=== PATIENT | female | born 1960 | race Caucasian/White ===

== ENCOUNTER 2020-01-31 11:54 | Outpatient (NON) | payer OTHER, SELFPAY ==
[2020-02-02 13:06] LABS: SARS-CoV-2 RNA PCR Negative
== END 2020-01-31 11:55 ==
LOC: ANHCOVIDDT 11:55
PROVIDERS: PCP Family Medicine; Visit Provider Physician Assistant
DX: Z20.828 Contact with and (suspected) exposure to other viral communicable diseases (principal); J02.9 Acute pharyngitis, unspecified; R52 Pain, unspecified
CPT/HCPCS: 87635; C9803; U0003

== ENCOUNTER 2020-04-28 08:40 | Outpatient (CLI) | payer OTHER, SELFPAY ==
--- NOTE | ~2020-04-28 | MM_ITS ---
EXAMINATION: MM screening [facility] w betsy HISTORY: Screening mammogram TECHNIQUE: Craniocaudal and mediolateral oblique 3-D tomosynthesis images were obtained and synthetic 2-D images were generated. CAD analysis was submitted and interpreted. COMPARISON: 04/07/2019, 03/30/2018, 02/11/2017 bilateral digital screening mammogram examinations BREAST PARENCHYMAL COMPOSITION: There are scattered areas of fibroglandular density. FINDINGS: There is no evidence of suspicious mass, calcification, or architectural distortion to sugg est malignancy in either breast. There has been no suspicious interval change. IMPRESSION: 1. No mammographic evidence of malignancy. 2. Recommend routine screening mammography in one year. BI-RADS Category 1: Negative Reviewed, dictated and finalized at location A. T RUNNER
== END 2020-04-28 08:41 | disposition home or self-care (01) ==
LOC: ANHIMG 08:42
PROVIDERS: PCP Family Medicine; Visit Provider Family Medicine
DX: Z12.31 Encounter for screening mammogram for malignant neoplasm of breast (principal)
CPT/HCPCS: 77063; 77067

== ENCOUNTER 2021-05-31 07:41 | Outpatient (CLI) | payer OTHER, SELFPAY ==
--- NOTE | ~2021-05-31 | MM_ITS ---
EXAMINATION: MM screening [facility] BI w betsy HISTORY: Screening mammogram TECHNIQUE: Craniocaudal and mediolateral oblique 3-D tomosynthesis images were obtained and synthetic 2-D images were generated. CAD analysis was submitted and interpreted. COMPARISON: 04/28/2020, 04/07/2019, 03/30/2018 BREAST PARENCHYMAL COMPOSITION: There are scattered areas of fibroglandular density. FINDINGS: There is no suspicious mass, calcification, or architectural distortion to suggest malignan cy in either breast. There has been no suspicious interval change. IMPRESSION: 1. No mammographic evidence of malignancy. 2. Recommend routine screening mammography in one year. BI-RADS Category 1: Negative Reviewed, dictated and finalized at location A.
== END 2021-05-31 07:42 | disposition home or self-care (01) ==
PROVIDERS: PCP Family Medicine; Visit Provider Family Medicine
DX: Z12.31 Encounter for screening mammogram for malignant neoplasm of breast (principal)
CPT/HCPCS: 77063; 77067

== ENCOUNTER → 2021-12-11 13:37 | Outpatient (CLI) | payer OTHER, SELFPAY ==
--- NOTE | ~2021-12-11 | DEXA_ITS ---
Bone Density Report Name: JAYMIE SPENCE Age: 61 Sex: Female Ethnicity: White Date of : 1960 Indication: postmenopausal; screening for osteoporosis; Referring Provider: Lisa Hull Study: Bone densitometry was performed. Exam Date: December 11, 2021 Accession number: [id number] Bone Density: Region BMD T-score Z-score Classification AP Spine (L1-L4) 0.931 -1.1 0.4 Osteopenia Femoral Neck (Left) 0.711 -1.2 0.1 Osteopenia Total Hip (Left) 0.939 0.0 0.9 Normal Femoral Neck (Right) 0.715 -1.2 0.1 Osteopenia Total Hip (Right) 0.945 0.0 1.0 Normal Total Hip Mean 0.942 0.0 1.0 Normal World Health Organization criteria for BMD impression classify patients as: Normal (T-score at or above -1.0), Osteopenia (T-score between -1.0 and -2.5), or Osteoporosis (T-score at or below -2.5). 10-year Fracture Risk(1): Major Osteoporotic Fracture 6.8% Hip Fracture 0.4% Reported Risk Factors: [place] (), Neck BMD=0.715, BMI=36.9 (1) FRAX(R) Version 3.08. Fracture probability calculated for an untreated patient. Fracture probability may be lower if the patient has received treatment. Clinical Information Provided by Patient: Has used the following medications: Vitamin D, Calcium Patient maximum height was 61 Menopause Age: 51 Drinks caffeinated beverages Onset of menses at age 14 Number of children 2 Impression: The patient has low bone mass, based on the Left Femoral Neck T-score. The patient has an estimated ten-year risk of hip fracture of 0.4% and an estimated ten-year risk of major fracture of 6.8%, based on the WHO FRAX algorithm. Discussion: BONE DENSITY IS LOW AT ONE OR MORE SKELETAL SITES. This patient's lowest T-score is low at one or more skeletal sites. It meets the World Health Organization's (WHO) criteria for ?low bone mass? (T-score between -1.0 and -2.5). The patient's 10-year risk of fracture as calculated by FRAX is less than the threshold where pharmacological therapy is recommended by the National Osteoporosis Foundation (NOF). However, all treatment decisions require clinical judgment and consideration of individual patient factors, including patient preferences, comorbidities, previous drug use, risk factors not captured in the FRAX model (e.g., frailty, falls, vitamin D deficiency, increased bone turnover, interval significant decline in bone density) and possible under or overestimation of fracture risk by FRAX. The patient should follow a healthful lifestyle (good nutrition with adequate calcium and vitamin D, and appropriate weight-bearing exercise). Follow-Up: Consider repeating this study in 2 to 3 years to reassess this patient's status, or sooner if there is some new clinical indication. Reported by: JAZMÍN on 12/11/2021 2:08:00 PM.
== END ==
PROVIDERS: PCP Family Medicine; Visit Provider Family Medicine
DX: Z78.0 Asymptomatic menopausal state (principal); M85.88 Other specified disorders of bone density and structure, other site; M85.852 Other specified disorders of bone density and structure, left thigh; M85.851 Other specified disorders of bone density and structure, right thigh
CPT/HCPCS: 77080

== ENCOUNTER → 2022-03-21 10:50 | Outpatient (CLI) | payer OTHER, SELFPAY ==
--- NOTE | ~2022-03-21 | US_ITS ---
Thyroid ultrasound. Clinical History: Hypothyroidism Findings: Real-time sonography of the thyroid gland was performed. The right lobe measures 4.8 x 1.2 x 1.5 cm. The left lobe measures 4.6 x 1.2 x 1.2 cm. The isthmus is 3 mm in AP diameter. 4 mm cystic nodule noted in the right thyroid lobe. 3 mm hypoechoic nodule noted the left midpole. Impression: Tiny thyroid nodules. No further follow-up required for these findings.. Reviewed, dictated and finalized at location M. 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 No further follow-up required for these findings..
== END ==
PROVIDERS: PCP Family Medicine; Visit Provider Nurse Practitioner
DX: E03.9 Hypothyroidism, unspecified (principal)
CPT/HCPCS: 76536

== ENCOUNTER 2022-12-23 13:46 | Outpatient (CLI) | payer OTHER, SELFPAY ==
--- NOTE | ~2022-12-23 | MM_ITS ---
EXAMINATION: MM screening [facility] BI w betsy HISTORY: Screening mammogram TECHNIQUE: Craniocaudal and mediolateral oblique 3-D tomosynthesis images were obtained and synthetic 2-D images were generated. CAD analysis was submitted and interpreted. COMPARISON: 05/31/2021, 04/28/2020, 04/07/2019 bilateral screening mammogram examinations BREAST PARENCHYMAL COMPOSITION: There are scattered areas of fibroglandular density. FINDINGS: There is no evidence of suspicious mass, calcification, or architectural distortion to sugg est malignancy in either breast. There has been no suspicious interval change. IMPRESSION: 1. No mammographic evidence of malignancy. 2. Recommend routine screening mammography in one year. BI-RADS Category 1: Negative Reviewed, dictated and finalized at location A.
== END 2022-12-23 13:47 | disposition home or self-care (01) ==
LOC: ANHIMG 13:48
PROVIDERS: PCP Family Medicine; Visit Provider Family Medicine
DX: Z12.31 Encounter for screening mammogram for malignant neoplasm of breast (principal)
CPT/HCPCS: 77063; 77067

== ENCOUNTER → 2023-03-25 10:49 | Outpatient (CLI) | payer OTHER, SELFPAY ==
--- NOTE | ~2023-03-25 | XR_ITS ---
XR sacrum coccyx min 2V DATE: 03/25/2023 11:01 INDICATION: Fall in December,. Sacrococcygeal disorder. TECHNIQUE: AP, angled AP and lateral views of sacrum and coccyx COMPARISON: None FINDINGS: There is borderline grade 1/grade 2 anterolisthesis and severe degenerative disc disease at L5-S1. No sacral or coccygeal fracture or bone destruction is detected. Normal alignment at the sacroiliac j oints and pubic symphysis. IMPRESSION: Severe degenerative disc disease and borderline grade 1/grade 2 anterolisthesis at L5-S1 Normal sacrum and coccyx Reviewed, dictated and finalized at location L. 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
== END ==
PROVIDERS: PCP Family Medicine; Visit Provider Family Medicine
DX: M47.817 Spondylosis without myelopathy or radiculopathy, lumbosacral region (principal); M51.37 Other intervertebral disc degeneration, lumbosacral region; M53.3 Sacrococcygeal disorders, not elsewhere classified
CPT/HCPCS: 72220

== ENCOUNTER 2024-01-06 08:02 | Outpatient (CLI) | payer OTHER, SELFPAY ==
--- NOTE | ~2024-01-06 | DEXA_ITS ---
Bone Density Report Name: JAYMIE SPENCE Age: 63 Sex: Female Ethnicity: White Date of : 1960 Indication: postmenopausal; screening for osteoporosis; Referring Provider: MOOK GASPAR Study: Bone densitometry was performed. Exam Date: January 06, 2024 Accession number: [id number] Bone Density: Region BMD T-score Z-score Classification AP Spine(L1-L4) 0.866 -1.6 -0.1 Osteopenia Femoral Neck (Left) 0.709 -1.3 0.1 Osteopenia Total Hip (Left) 0.893 -0.4 0.7 Normal Femoral Neck (Right) 0.718 -1.2 0.2 Osteopenia Total Hip (Right) 0.908 -0.3 0.8 Normal Femoral Neck Mean 0.714 -1.2 0.2 Osteopenia Total Hip Mean 0.901 -0.3 0.7 Normal World Health Organization criteria for BMD impression classify patients as: Normal (T-score at or above -1.0), Osteopenia (T-score between -1.0 and -2.5), or Osteoporosis (T-score at or below -2.5). 10-year Fracture Risk(1): Major Osteoporotic Fracture 7.3% Hip Fracture 0.5% Reported Risk Factors: [place] (), Neck BMD=0.709, BMI=36.1 (1) FRAX(R) Version 3.08. Fracture probability calculated for an untreated patient. Fracture probability may be lower if the patient has received treatment. Clinical Information Provided by Patient: Has used the following medications: HRT (i.e. estrogen/hormone therapy), Vitamin D, Calcium Patient maximum height was 61.0 Menopause Age: 51 No regular weight bearing exercise Drinks caffeinated beverages Onset of menses at age 14 Number of children 2 Impression: The patient has low bone mass, based on the Total Spine T-score. Discussion: BONE DENSITY IS LOW AT ONE OR MORE SKELETAL SITES. This patient's lowest T-score is low at one or more skeletal sites. It meets the World Health Organization's (WHO) criteria for ?low bone mass? (T-score between -1.0 and -2.5). The patient's 10-year risk of fracture as calculated by FRAX is less than the threshold where pharmacological therapy is recommended by the National Osteoporosis Foundation (NOF). However, all treatment decisions require clinical judgment and consideration of individual patient factors, including patient preferences, comorbidities, previous drug use, risk factors not captured in the FRAX model (e.g., frailty, falls, vitamin D deficiency, increased bone turnover, interval significant decline in bone density) and possible under or overestimation of fracture risk by FRAX. The patient should follow a healthful lifestyle (good nutrition with adequate calcium and vitamin D, and appropriate weight-bearing exercise). Follow-Up: Consider repeating this study in 2 to 3 years to reassess this patient's status, or sooner if there is some new clinical indication. Reported by: BAHMAN on 01/06/2024 2:42:00 PM.
== END 2024-01-06 08:03 | disposition home or self-care (01) ==
LOC: CHSIMG 08:05
PROVIDERS: PCP Family Medicine; Visit Provider Nurse Practitioner
DX: Z78.0 Asymptomatic menopausal state (principal); M85.88 Other specified disorders of bone density and structure, other site
CPT/HCPCS: 77080

== ENCOUNTER 2024-01-12 03:17 | Day surgery (SDC) | payer OTHER, SELFPAY ==
[2024-01-01 10:15] VITALS: BMI 35.4
--- NOTE | 2024-01-11 14:56 | WPDANESEPP ---
Anes - Eval Pre Procedure Procedure: Operation Date: 01/12/24 07:30 Proposed Procedures p Screening Colonoscopy - Prosper Lion MD Date/Time: 01/11/24 14:56 Pre Op Diagnosis: neoplasm screening Patient Data Age: 63 Gender: F Height: 1.55 m Weight: 85 kg Allergies Allergy/AdvReac Type Severity Reaction Status Date / Time No Known Allergies Allergy Verified 01/01/24 10:09 Home Medications Medication Instructions Recorded Confirmed Type meclizine 12.5 mg tablet 12.5 mg PO QID PRN dizziness #28 02/19/19 01/01/24 Rx tabs multivitamin 1 tablet PO DAILY 09/21/19 01/01/24 History albuterol sulfate 90 mcg/actuation 2 inh inhalation Q4H PRN shortness 02/12/21 01/01/24 Rx aerosol inhaler of breath or wheezing #8.5 grams omeprazole 20 mg capsule,delayed 20 mg PO DAILY #90 caps 12/10/21 01/01/24 Rx release fluticasone propionate 50 1 spray intranasal DAILY 07/08/22 01/01/24 History mcg/actuation nasal spray,suspension (Flonase Allergy Relief) tizanidine 4 mg capsule 4 mg PO QHS PRN muscle spasticity 03/25/23 01/01/24 Rx #30 caps loratadine 10 mg tablet (Claritin) 10 mg PO PRN PRN Congestion 08/01/23 01/01/24 History levothyroxine 25 mcg tablet 25 mcg PO DAILY #90 tabs 08/12/23 01/01/24 Rx atorvastatin 40 mg tablet 40 mg PO DAILY #90 tabs 09/15/23 01/01/24 Rx paroxetine HCl 10 mg tablet 10 mg PO DAILY #90 tabs 09/15/23 01/01/24 Rx ergocalciferol (vitamin D2) 1,250 1,250 mcg PO WEEKLY #12 caps 10/30/23 01/01/24 Rx mcg (50,000 unit) capsule (Vitamin D2) hydrochlorothiazide 12.5 mg tablet See Rx Instructions .Route 10/30/23 01/01/24 Rx .COMPLEX #90 tabs losartan 50 mg tablet 50 mg PO DAILY #90 tabs 10/30/23 01/01/24 Rx naproxen 500 mg tablet 500 mg PO DAILY 01/01/24 01/01/24 History Patient hx anesthesia problems: none Family hx anesthesia problems: none Results Review: All pre-operative results and documents have been reviewed as part of the pre-operative evaluation. [facility] Past Medical History Medical History Deficient knowledge of caesarean delivery Hepatitis C antibody test negative (04/08/17) History of deviated nasal septum (~1982) Surgical History Surgical History H/O removal of cyst (~2014) History of carpal tunnel release (~2013) History of colonoscopy Social History Social History Smoking status: Never smoker Alcohol intake: current Drinks per week: 14 Alcohol use details: 2 glasses of wine a night Substance use: never Substance use type: does not use Lack of Transportation: No Lack of Food: Never True Current Housing: I Have Housing Concerned About Future Housing: No Difficulty Paying Gas/Electric Bills: No Difficulty Paying for Meds: No Currently Unemployed: No Education: Bachelor's Degree Difficulty w/ Childcare or Family Care: No Living arrangements: with family Occupation/Education: retired Gender identity (if verbalized by the patient): Female Spiritual care concerns: No Agree to blood products: Yes Exam Day of Procedure 01/11/24 14:56
[2024-01-12 06:21] VITALS: BP 180/76; PULSE 52; RESP 18; TEMP 36.1; O2SAT 99
[2024-01-12] MEDS: LACTATED RINGERS 1,000 ML 150 ML IV CONT (06:27)
--- NOTE | 2024-01-12 07:22 | P.HP_ITS ---
H&P: HPI History of Present Illness Date/Time: 01/12/24 07:22 Chief Complaint: Screening colonoscopy Narrative: This is the patient's second colonoscopy after 10 years. There are no GI symptoms and there is no family history of colorectal cancer. [facility] Past Medical History Medical History Deficient knowledge of caesarean delivery Hepatitis C antibody test negative (04/08/17) History of deviated nasal septum (~1982) Surgical History Surgical History H/O removal of cyst (~2014) History of carpal tunnel release (~2013) History of colonoscopy Social History Social History Smoking status: Never smoker Alcohol intake: current Drinks per week: 14 Alcohol use details: 2 glasses of wine a night Substance use: never Substance use type: does not use Lack of Transportation: No Lack of Food: Never True Current Housing: I Have Housing Concerned About Future Housing: No Difficulty Paying Gas/Electric Bills: No Difficulty Paying for Meds: No Currently Unemployed: No Education: Bachelor's Degree Difficulty w/ Childcare or Family Care: No Living arrangements: with family Occupation/Education: retired Gender identity (if verbalized by the patient): Female Spiritual care concerns: No Agree to blood products: Yes Meds Home Medications and Allergies Home Medications Medication Instructions Recorded Confirmed Type meclizine 12.5 mg tablet 12.5 mg PO QID PRN dizziness #28 02/19/19 01/12/24 Rx tabs multivitamin 1 tablet PO DAILY 09/21/19 01/12/24 History albuterol sulfate 90 mcg/actuation 2 inh inhalation Q4H PRN shortness 02/12/21 01/12/24 Rx aerosol inhaler of breath or wheezing #8.5 grams omeprazole 20 mg capsule,delayed 20 mg PO DAILY #90 caps 12/10/21 01/12/24 Rx release fluticasone propionate 50 1 spray intranasal DAILY 07/08/22 01/12/24 History mcg/actuation nasal spray,suspension (Flonase Allergy Relief) tizanidine 4 mg capsule 4 mg PO QHS PRN muscle spasticity 03/25/23 01/12/24 Rx #30 caps loratadine 10 mg tablet (Claritin) 10 mg PO PRN PRN Congestion 08/01/23 01/12/24 History levothyroxine 25 mcg tablet 25 mcg PO DAILY #90 tabs 08/12/23 01/12/24 Rx atorvastatin 40 mg tablet 40 mg PO DAILY #90 tabs 09/15/23 01/12/24 Rx paroxetine HCl 10 mg tablet 10 mg PO DAILY #90 tabs 09/15/23 01/12/24 Rx ergocalciferol (vitamin D2) 1,250 1,250 mcg PO WEEKLY #12 caps 10/30/23 01/12/24 Rx mcg (50,000 unit) capsule (Vitamin D2) hydrochlorothiazide 12.5 mg tablet See Rx Instructions .Route 10/30/23 01/12/24 Rx .COMPLEX #90 tabs losartan 50 mg tablet 50 mg PO DAILY #90 tabs 10/30/23 01/12/24 Rx naproxen 500 mg tablet 500 mg PO DAILY 01/01/24 01/12/24 History Allergies Allergy/AdvReac Type Severity Reaction Status Date / Time No Known Allergies Allergy Verified 01/12/24 06:17 Vital Signs Vital Signs - 24 hr 01/12/24 06:21 Temperature 97 F L Pulse Rate 52 L Respiratory Rate 18 Blood Pressure 180/76 H Pulse Oximetry 99 Oxygen Delivery Room Air Assessment and Plan Assessment and plan (1) Screening for colon cancer: Code(s): Z12.11 - Encounter for screening for malignant neoplasm of colon Status: Acute Plan The patient is deemed a good candidate for the procedure. Consent signed. Will proceed.
--- NOTE | 2024-01-12 07:26 | WPDANESEPPF ---
Anes - Initial Pre Proc Eval Procedure: Operation Date: 01/12/24 07:30 Proposed Procedures p Screening Colonoscopy - Prosper Lion MD Date/Time: 01/12/24 07:26 Surgeon: Prosper Lion MD Pre Op Diagnosis: neoplasm screening Patient Data Age: 63 Gender: F Height: 1.55 m Weight: 83 kg Last Vital Signs Temp 36.1 C L 01/12/24 06:21 Pulse 52 L 01/12/24 06:21 Resp 18 01/12/24 06:21 BP 180/76 H 01/12/24 06:21 Pulse Ox 99 01/12/24 06:21 O2 Del Method Room Air 01/12/24 06:21 Allergies Allergy/AdvReac Type Severity Reaction Status Date / Time No Known Allergies Allergy Verified 01/12/24 06:17 Home Medications Medication Instructions Recorded Confirmed Type meclizine 12.5 mg tablet 12.5 mg PO QID PRN dizziness #28 02/19/19 01/12/24 Rx tabs multivitamin 1 tablet PO DAILY 09/21/19 01/12/24 History albuterol sulfate 90 mcg/actuation 2 inh inhalation Q4H PRN shortness 02/12/21 01/12/24 Rx aerosol inhaler of breath or wheezing #8.5 grams omeprazole 20 mg capsule,delayed 20 mg PO DAILY #90 caps 12/10/21 01/12/24 Rx release fluticasone propionate 50 1 spray intranasal DAILY 07/08/22 01/12/24 History mcg/actuation nasal spray,suspension (Flonase Allergy Relief) tizanidine 4 mg capsule 4 mg PO QHS PRN muscle spasticity 03/25/23 01/12/24 Rx #30 caps loratadine 10 mg tablet (Claritin) 10 mg PO PRN PRN Congestion 08/01/23 01/12/24 History levothyroxine 25 mcg tablet 25 mcg PO DAILY #90 tabs 08/12/23 01/12/24 Rx atorvastatin 40 mg tablet 40 mg PO DAILY #90 tabs 09/15/23 01/12/24 Rx paroxetine HCl 10 mg tablet 10 mg PO DAILY #90 tabs 09/15/23 01/12/24 Rx ergocalciferol (vitamin D2) 1,250 1,250 mcg PO WEEKLY #12 caps 10/30/23 01/12/24 Rx mcg (50,000 unit) capsule (Vitamin D2) hydrochlorothiazide 12.5 mg tablet See Rx Instructions .Route 10/30/23 01/12/24 Rx .COMPLEX #90 tabs losartan 50 mg tablet 50 mg PO DAILY #90 tabs 10/30/23 01/12/24 Rx naproxen 500 mg tablet 500 mg PO DAILY 01/01/24 01/12/24 History Patient hx anesthesia problems: none Family hx anesthesia problems: none Results Review: All pre-operative results and documents have been reviewed as part of the pre-operative evaluation. [facility] Past Medical History Medical History Deficient knowledge of caesarean delivery Hepatitis C antibody test negative (04/08/17) History of deviated nasal septum (~1982) Surgical History Surgical History H/O removal of cyst (~2014) History of carpal tunnel release (~2013) History of colonoscopy Social History Social History Smoking status: Never smoker Alcohol intake: current Drinks per week: 14 Alcohol use details: 2 glasses of wine a night Substance use: never Substance use type: does not use Lack of Transportation: No Lack of Food: Never True Current Housing: I Have Housing Concerned About Future Housing: No Difficulty Paying Gas/Electric Bills: No Difficulty Paying for Meds: No Currently Unemployed: No Education: Bachelor's Degree Difficulty w/ Childcare or Family Care: No Living arrangements: with family Occupation/Education: retired Gender identity (if verbalized by the patient): Female Spiritual care concerns: No Agree to blood products: Yes Anes - Eval Final PreProcedure Day of Procedure 01/12/24 07:26 Patient weight: obese Heart: regular rate and rhythm Lungs: clear to auscultation Airway: Mallampati scale class II Neurological: alert and oriented Last oral intake: >/= 8 hours ASA classification: III Emergent: no Anesthetic plan: proceed Anesthesia type and monitoring: general GIVS and standard monitoring Results Review: All pre-operative results and documents have been reviewed as part of the pre-operative evaluation. Informed Consent: The patient's anesthetic plan and its attendant risks and benefits were discussed with the patient/family/POA. Questions were solicited and answers provided to the satisfaction of the patient/family/POA.
[2024-01-12 07:48] VITALS: BP 138/75; PULSE 55; RESP 20; O2SAT 98
[2024-01-12 07:58] VITALS: BP 123/65; PULSE 44; RESP 20; O2SAT 99
[2024-01-12 08:08] VITALS: BP 138/80; PULSE 50; RESP 17; O2SAT 100
== END 2024-01-12 08:25 | disposition home or self-care (01) ==
PROVIDERS: PCP Family Medicine; Referring Provider Nurse Practitioner; Visit Provider Internal Medicine Gastroenterology
PROC: 0DJD8ZZ Inspection of Lower Intestinal Tract, Via Natural or Artificial Opening Endoscopic (ICD-10-PCS; CPT 45378; principal; 2024-01-12 07:30)
DX: Z12.11 Encounter for screening for malignant neoplasm of colon (principal); E66.9 Obesity, unspecified; Z68.34 Body mass index [BMI] 34.0-34.9, adult; Z79.51 Long term (current) use of inhaled steroids; Z79.1 Long term (current) use of non-steroidal anti-inflammatories (NSAID); Z98.890 Other specified postprocedural states
CPT/HCPCS: 45378; J2003; J2704; J7120

== ENCOUNTER 2024-03-15 14:05 | Outpatient (CLI) | payer OTHER, SELFPAY ==
--- NOTE | ~2024-03-15 | MM_ITS ---
EXAMINATION: MM screening [facility] BI w betsy HISTORY: Screening mammogram TECHNIQUE: Craniocaudal and mediolateral oblique 3-D tomosynthesis images were obtained and synthetic 2-D images were generated. CAD analysis was submitted and interpreted. COMPARISON: 12/23/2022, 05/31/2021, 04/28/2020 BREAST PARENCHYMAL COMPOSITION:Not Dense. There are scattered areas of fibroglandular density. FINDINGS: No suspicious mass, calcification, or architectural distortion are identified in either ashley ast to suggest malignancy. There has been no suspicious interval change. IMPRESSION: No mammographic evidence of malignancy. Recommend routine screening mammography in one year. BI-RADS Category 1: Negative Reviewed, dictated and finalized at location . 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
== END 2024-03-15 14:06 | disposition home or self-care (01) ==
LOC: ANHIMG 14:08
PROVIDERS: PCP Family Medicine; Visit Provider Family Medicine
DX: Z12.31 Encounter for screening mammogram for malignant neoplasm of breast (principal)
CPT/HCPCS: 77063; 77067